=== PATIENT | male | born 1945 | race Two or more races ===

== ENCOUNTER 2021-04-25 05:45 | Day surgery (SDC) | payer OTHER | END 2021-04-25 09:55 | disposition home or self-care (01) | LOC: AMB-ENDOS 05:45 | PROVIDERS: ATTEND Surgery | DX: K57.32 Diverticulitis of large intestine without perforation or abscess without bleeding (principal); K64.0 First degree hemorrhoids; Z20.822 Contact with and (suspected) exposure to COVID-19 ==

== ENCOUNTER 2021-06-01 10:45 | Inpatient (IN) | payer OTHER ==
[~2021-06-01] VITALS: Ht 167.6 cm; Wt 68.0 kg
[2021-06-01] MEDS ORDERED: LIPITOR20 MG PO (13:34)
[2021-06-01] MEDS ORDERED: COZAAR50 MG PO (13:34)
[2021-06-11] MEDS ORDERED: AMOX1TAB5 PO (11:55)
[2021-06-11] MEDS ORDERED: PERCOCET 5-3251 EACH PO (11:56)
== END 2021-06-11 12:52 | disposition home or self-care (01) | DRG 333 ==
LOC: SURG 06-07 05:30 → O/R 06-07 05:30 → SURH 06-07 10:15 → SURG 06-07 10:16 → SURH 06-07 10:45 → SURG 06-11 12:52
PROVIDERS: ADMIT Surgery; ATTEND Surgery
PROC: 0DTP4ZZ Resection of Rectum, Percutaneous Endoscopic Approach (ICD-10-PCS; principal; 2021-06-07 10:15)
DX: K57.32 Diverticulitis of large intestine without perforation or abscess without bleeding (principal); D37.4 Neoplasm of uncertain behavior of colon; K92.1 Melena; Z20.822 Contact with and (suspected) exposure to COVID-19